=== PATIENT | female | born 2000 | race Caucasian/White ===

== ENCOUNTER 2023-01-21 13:41 | Emergency (ER) | payer MEDICAID, OTHER ==
[~2023-01-21] VITALS: Ht 152.4 cm; Wt 73.0 kg
[2023-01-21] MEDS ORDERED: SODIUM CHLORIDE 0.9% 1,000 ML IV ONE (16:15)
[2023-01-21] MEDS ORDERED: KETOROLAC 30MG/ML VIAL IV ONE (16:15)
[2023-01-21] MEDS ORDERED: METOCLOPRAMIDE HCL 10MG/2ML VIAL IV ONE (16:15)
[2023-01-21 16:44] LABS: BASOPHILS % 0.2 % (0.0-2.0); EOSINOPHILS % 0.1 % (0.0-5.0); HEMATOCRIT. 42.2 % (36.0-48.0); HEMOGLOBIN. 14.4 g/dL (12.0-16.0); LYMPHOCYTES % 9.1 % (20.0-50.0); MEAN CORPUSCULAR HEMOGLOBIN 30.7 pg (28.0-32.0); MEAN CORPUSCULAR VOLUME 89.7 fL (81.0-99.0); MEAN PLATELET VOLUME 7.5 fl (7.4-10.4); MONOCYTES % 2.2 % (2.0-8.0); NEUTROPHILS % 88.4 % (40.0-76.0); PLATELET 433 x1000/uL (130-400); RED CELL DISTRIBUTION WIDTH 13.1 % (11.6-14.6)
[2023-01-21 16:48] LABS: CHLORIDE 108 mEq/L (98-107)
[2023-01-21 17:05] LABS: HCG SCREEN NEGATIVE
[2023-01-21] MEDS ORDERED: KETOROLAC 30MG/ML VIAL IV NR (18:00)
[2023-01-21] MEDS ORDERED: METOCLOPRAMIDE HCL 10MG/2ML VIAL IV NR (18:00)
[2023-01-21] MEDS ORDERED: IMIT50 MT ×3 (18:36→18:44)
[2023-01-21] MEDS ORDERED: IBUP-2029 MT (18:36)
[2023-01-21 19:20] VITALS: BP 115/70
== END 2023-01-21 19:21 | disposition home or self-care (01) ==
LOC: ER 13:54
DX: R51.9 Headache, unspecified (principal); R42 Dizziness and giddiness
CPT/HCPCS: 36415; 80053; 83690; 84703; 85025; 96361; 96374; 96375; 99285; J1885; J2765; J7030; Z7610